=== PATIENT | female | born 1960 | race Caucasian/White ===

== ENCOUNTER 2019-04-05 00:25 | Outpatient (CLI) | payer OTHER, SELFPAY ==
--- NOTE | 2019-04-05 16:13 | DI.MAMMO_ITS ---
SYMPTOM/DIAGNOSIS: SCREENING Z12.39 MAMMOGRAM: 04/05 Mammograms were interpreted according to the usual protocol including computer analysis with CAD system, tomosynthesis and C view imaging. The breasts are of moderate density with fairly symmetrical distribution of fibroglandular tissue. No dominant mass or clumped microcalcification is identified in either breast. The current examination is compared with previous examinations including December 2015 and there has been no gross interval change in appearance in comparison with the previous studies. CONCLUSION: No specific evidence of malignancy at this time. Routine screening examinations are suggested at yearly intervals in this age group according to the ACS/ACR guidelines. Category 1, breast density category B. MQSA ASSESSMENT OF FINDINGS: Negative. Category 1. Patient will receive a letter notifying them of these results. BI-RADS category B. There are scattered areas of fibroglandular density.
== END 2019-04-05 00:45 ==
PROVIDERS: PCP Nurse Practitioner Family; Visit Provider Nurse Practitioner Family
DX: Z12.31 Encounter for screening mammogram for malignant neoplasm of breast (principal)
CPT/HCPCS: 77063; 77067

== ENCOUNTER 2019-07-18 19:52 | Outpatient (REF) | payer OTHER, SELFPAY ==
[2019-07-18 18:56] LABS: HCT 37.6 % (36.0-46.0); HGB 12.4 g/dL (12.0-15.5); Mean Corpuscular Hemoglobin 30.6 pg (27.0-33.0); Mean Corpuscular Volume 92.8 fL (80-95); Mean Platelet Volume 10.6 fL (8.0-11.0); Platelet Count 247 x1000/uL (130-400); RBC 4.05 m/cumm (4.00-5.20); RBC Distribution Width 12.7 % (11.7-14.6); White Blood Cell Count 5.86 k/cumm (4.4-10.8)
[2019-07-18 19:13] LABS: Anion Gap 9.1 mmol/L (3-11); BUN 19 mg/dL (7-18); CO2 28.9 mmol/L (21.0-32.0); Calcium 9.1 mg/dL (8.5-10.1); Chloride 104 mmol/L (98-107); Glucose 88 mg/dL (74-106); Potassium 3.4 mmol/L (3.5-5.1); Sodium 142 mmol/L (136-145); TSH (W/Ref FT4) 1.39 uIU/mL (0.36-3.74)
== END 2019-07-18 20:12 ==
LOC: NCHCN 19:52
PROVIDERS: PCP Nurse Practitioner Family; Visit Provider Nurse Practitioner Family
DX: R53.83 Other fatigue (principal); F41.8 Other specified anxiety disorders; G47.00 Insomnia, unspecified
CPT/HCPCS: 80048; 85027; 84443

== ENCOUNTER 2021-05-21 02:00 | Outpatient (CLI) | payer OTHER, SELFPAY ==
[2021-05-21 10:12] LABS: Source Nasal/Nares
[2021-05-21 13:54] LABS: COVID-19 PCR Negative (Negative)
== END 2021-05-21 02:01 | disposition home or self-care (01) ==
LOC: LBO 02:01
PROVIDERS: PCP Nurse Practitioner Family; Visit Provider Ophthalmology
DX: Z20.822 Contact with and (suspected) exposure to COVID-19 (principal); Z01.818 Encounter for other preprocedural examination
CPT/HCPCS: 87635

== ENCOUNTER 2021-05-23 08:51 | Day surgery (SDC) | payer OTHER, SELFPAY ==
--- NOTE | 2021-05-23 08:58 | W.PM.DSUDISC ---
Discharge Plan Disposition Patient Disposition: HOME Condition: Good Discharge Details Attending Provider: Joel Dave Primary Care Provider: Brie Lentz Home Meds and New Rx's Prescriptions: No Action atorvastatin 20 MG tablet 20 mg PO DAILY RF: 0 verapamil 180 MG capsule,ext rel. pellets 24 hr 180 mg PO HS RF: 0 amitriptyline 100 MG tablet 100 mg PO HS RF: 0 VITAMIN D3 2,000 UNIT tablet 2,000 unit PO HS RF: 0 oxybutynin chloride 5 MG tablet 5 mg PO HS RF: 0 polyethylene glycol 3350 [Miralax] 17 GM powder in packet 17 g PO DAILY Qty: 255 RF: 0 diltiazem HCl 240 MG capsule,extended release 24 hr 240 mg PO HS RF: 0 cyanocobalamin (vitamin B-12) 2,500 MCG tablet 2,500 mcg PO HS RF: 0 prochlorperazine maleate 5 MG tablet 5 mg PO Q8H PRN Qty: 30 RF: 3 Discharge Instructions Stand Alone Forms: Post-op Topical Cataract, Eitan Jacobson (DSU) DS: Diagnosis Discharge Diagnosis (1) Nuclear sclerotic cataract of right eye: Status: Resolved (2) Cortical cataract of right eye: Status: Resolved
--- NOTE | 2021-05-23 08:59 | ROE_ITS ---
Date of service: 05/23/21 Time of Service: 11:38 Operative Note Operative Note DATE OF PROCEDURE: 05/23/21 PRE-OP DIAGNOSIS: Nuclear/cortical cataract, right eye Poor red reflex, right eye secondary to cataract POST-OP DIAGNOSIS: same PROCEDURE: Cataract extraction using phacoemulsification with intraocular lens implantation, right eye, using capsular staining with Vision Blue SURGEON: Joel Dave ANESTHESIA TYPE: Local By Surgeon and MAC Refer to Anesthesia Record PATHOLOGY: none sent COMPLICATIONS: None Patient was transported to: same day Patient's condition: stable Implants: [employer] / [employer] Tecnis [id number] Indications: Progressive visual loss due to cataract, right eye Procedure Description: CATARACT SURGERY OPERATIVE REPORT PREOPERATIVE DIAGNOSIS: 1. Nuclear/cortical cataract, right eye 2. Poor red reflex secondary to #1 POSTOPERATIVE DIAGNOSIS: Same OPERATION: 1. Cataract extraction using phacoemulsification with posterior chamber intraocular lens implant, right eye. 2. Capsular staining with Vision Blue IOL: IOL Edging Supervisor/Model: [employer] Corky / JURGEN Tecnis [id number] IOL Power: + 23.0 diopters IOL Serial Number: [id number] Optic Diameter: 6.0mm Haptic/Overall Diameter: 13.0mm PHACO INFO: Berny [employer]ion Vision System with OZil and Active [employer]uidics Cumulative Dispersed Energy (CDE): 6.53 seconds SURGEON: Joel Dave MD, DONALD ANESTHESIA: Monitored Anesthesia Care (MAC), with local sub-tenon's anesthetic infiltration COMPLICATIONS: None SPECIMENS: None INDICATIONS FOR PROCEDURE: The patient is a 60-year-old lady with history of diminished visual acuity in her right eye secondary to the development of significant nuclear and cortical cataract. The option of cataract surgery was offered to the patient and she felt she was symptomatic enough that she wished to proceed. PROCEDURE: The correct surgical eye was identified and marked as the right eye and the pupil was dilated in the preoperative area using mydriatics and cycloplegics. The dilated pupil size was 6.5 mm. She elected to proceed without oral sedation. The patient was brought to the operating room where cardiopulmonary monitoring was instituted and surgical time-out was performed, confirming the correct operative eye and IOL power. Topical anesthesia was administered and ophthalmic povidone-iodine 5% was instilled into the conjunctival fornices. While taping the head, the patient felt too claustrophobic. The procedure was paused, and an IV was started and Versed 2 mg was given IV. Lidocaine gel was applied to the cornea and the kiersten- ocular area was prepped with Betadine 10% solution and draped in the usual sterile fashion for intraocular surgery, including an aperture drape. A Tegaderm transparent film dressing was cut in half and used to cover the lashes and lid margins. Care was taken to sequester the lashes and lid margins under the Tegaderm dressing. A lid speculum was placed between the lids of the operative eye and the Mark Anthony-Hannah operating microscope was maneuvered into position. Carly scissors were then used to make a conjunctival buttonhole approximately 6mm posterior to the limbus in the inferonasal quadrant. Blunt dissection was carried out to expose bare sclera, and a blunt-tipped sub-tenon?s anesthesia cannula was introduced and passed posteriorly along the globe where non- preserved plain lidocaine was injected into posterior sub-Tenon?s space. A sidep ort knife was used to make a paracentesis port inferotemporally. Intraocular phenylephrine/lidocaine was injected into the anterior chamber. Air was injected into the anterior chamber, followed by Vision Blue, which was painted over the anterior capsule and then irrigated out with BSS. The anterior chamber was filled with viscoelastic. A 2.4mm keratome knife was used to create a half- thickness groove at the limbus and then to construct a three-plane near-clear corneal tunnel extending 2.0mm into clear cornea superiortemporally. A flap was raised on the anterior capsule and capsulorhexis forceps were used to complete a continuous curvilinear capsulorhexis of 5.0 mm. Balanced salt solution was then used to perform cortical cleaving hydrodissection and nuclear hydrodelineation until the lens could be freely rotated within the capsular bag. The lens nucleus was then disassembled and removed within the capsular bag and iris plane using phacoemulsification. Residual cortical material was removed using the I/A handpiece. The posterior capsule was carefully polished to remove as much residual lens epithelial cells as safely possible. The capsular bag was then inflated and the anterior chamber deepened with viscoelastic. The lens implant described above was inserted into the capsular bag using the JURGEN [place] Injector. A Kuglen hook was used to dial the IOL into position. Residual viscoelastic was then removed first from posterior to the IOL, then from the anterior chamber using the I/A handpiece. The lens implant was noted to center nicely within the capsular bag. The incisions were stromally hydrated, and the anterior chamber was reformed using BSS. Then 0.5cc of moxifloxacin 1.0mg/ml were injected into the capsular bag and anterior chamber. The incisions were checked with a Weck spear and found to be secure. Several drops of ophthalmic povidone-iodine 5% were then applied to the eye followed by two drops of Imprimis combination prednisolone/moxifloxacin/nepafenac solution. The drapes were removed and a clear plastic protective eye shield was placed over the eye. The patient was then returned to [facility] Day Surgery in stable condition.
[2021-05-23 09:15] VITALS: BP 147/89; PULSE 74; RESP 16; TEMP 36.4; O2SAT 96
[2021-05-23] MEDS: Tropicam./Phenyleph. (1/2.5%) 5 ML BTL OD ×3 (09:35→09:48)
--- NOTE | 2021-05-23 10:21 | W.ANESPRE ---
General Info Date of Service Date Performed: 05/23/21 Height: 5 ft 7.5 in Weight: 76.3 kg Body Mass Index (BMI): 25.9 Surgical Procedure: Operation Date: 05/23/21 11:40 Proposed Procedures Side Surgeon p Cataract Extraction with IOL Implant Right Joel Dave MD Meds Allergies and Home Medications Allergies Allergy/AdvReac Type Severity Reaction Status Date / Time No Known Allergies Allergy Unverified 05/23/21 09:27 Home Medication Medication Instructions Recorded Vitamin D3 2,000 unit PO HS 01/20/16 amitriptyline 100 mg PO HS tab-cap 01/20/16 atorvastatin 20 mg PO DAILY tab-cap 01/20/16 cyanocobalamin (vitamin B-12) 2,500 mcg PO HS 12/28/17 diltiazem HCl 240 mg PO HS 12/28/17 oxybutynin chloride 5 mg PO HS tab-cap 12/28/17 polyethylene glycol 3350 [Miralax] 17 g PO DAILY #255 gm 12/28/17 magnesium oxide 500 mg PO DAILY 05/23/21 Current Visit Medications: Current Medications Generic Name Dose Route Start Last Admin Trade Name Freq PRN Reason Stop Dose Admin Acetaminophen 1,000 mg 05/23/21 06:00 Acetaminophen 500 Mg Tab PO Q4H PRN PRN Miscellaneous Medication 0 ml 05/23/21 06:00 Prednisolone 1%, Moxifloxacin 0.5%, Nepafenac 0.1% 5ml Btl OD DIRECTED [facility] Miscellaneous Medication 0 ml 05/23/21 06:00 05/23/21 09:48 Tropicam./Phenyleph. (1/2.5%) 5 Ml Btl OD 1 drp DIRECTED DOMINGO Administration Tetracaine HCl 0 ml 05/23/21 06:00 Tetracaine 0.5% 4 Ml Btl OD DIRECTED DOMINGO PFSH Active Problems Active Problems: Problem Status Onset Code Encounter for colorectal cancer screening Z12.11, Z12.12 Nuclear sclerotic cataract of right eye H25.11 Cortical cataract of right eye H26.9 Medical History Medical History Chronic headache HTN (hypertension) OAB (overactive bladder) Surgical History Surgical History back surgery Colonoscopy - MAC (03/13/16) Vaginal hysterectomy Tobacco Smoking/Tobacco Use Status: Former Tobacco Use Alcohol Alcohol Intake: current Alcohol intake frequency: a few times a week Substance Use Substance use: Never Substance use type: does not use Vital Signs and Lab Results Vital Signs Most Recent Vital Signs in EMR: Most Recent Vital Signs Temp Pulse Resp BP Pulse Ox 36.4 C L 74 16 147/89 H 96 05/23/21 09:15 05/23/21 09:15 05/23/21 09:15 05/23/21 09:15 05/23/21 09:15 Lab Results Blood Type / Crossmatch: No Data to Display Complete Blood Count: No Data to Display Complete Metabolic Panel: No Data to Display Liver Function Panel: No Data to Display Coagulation Panel: No Data to Display Cardiac Panel: No Data to Display Arterial Blood Gas: No Data to Display Venous Blood Gas: No Data to Display Pancreas Panel: No Data to Display Thyroid Panel: No Data to Display Infectious Disease: Coronavirus (COVID-19)(PCR) Negative (Negative) 05/21/21 09:35 05/21/21 Coronavirus 2019 Source Nasal/Nares 05/21/21 09:35 05/21/21 Blood Cultures: No Data to Display Toxicology Panel: No Data to Display Anesthesia Assessment and Plan Anesthesia History Personal History: No History of Anesthesia Complications Family History: No Family History of Anesthesia Complications Exercise Tolerance Exercise Tolerance: Metabolic Equivalents>4 Pertinent Negatives Pertinent Negatives: No Symptoms of GERD and No Major Pulmonary Symptoms or Complaints Cardiac & Pulmonary Exam Cardiac Exam: Normal S1/S2 Heart Sounds Pulmonary Exam: Clear Bilateral Breath Sounds Airway Exam Known Difficult Airway: No Mallampati Class: 2 Mouth Opening: Normal (> 3cm) Thyromental Distance: Greater than 3 cm Neck Range of Motion: Full ROM Neck Circumference: Normal Teeth Condition: Normal Dentition ASA Classification ASA Score: ASA 2 Emergency Case?: No NPO Status NPO Status: NPO Clears >2 hours, Solids >8 hours Anesthesia Plan Resuscitation Status: Full Code Anesthesia Technique: MAC Anesthesia Airway Planned: Natural Airway Monitors Used: Standard Monitors
[2021-05-23 10:23] VITALS: BMI 25.9
[2021-05-23] MEDS: Tetracaine 0.5% 4 ML BTL OD (10:59)
[2021-05-23] MEDS: Balanced Salt Soln.-PLUS 500 ML BAG (11:11)
[2021-05-23] MEDS: Duovisc Viscoelastic System EACH 1 EACH (11:14)
[2021-05-23] MEDS: Lidocaine 1% Pres-Free 5 ML VIAL (11:14)
[2021-05-23] MEDS: Lidocaine 2% Jelly 6 ML SYR (11:15)
[2021-05-23] MEDS: Povidone-Iodine Ophth 30 ML BTL (11:18)
[2021-05-23] MEDS: Trypan Blue 0.06% 0.5 ML SYR (11:19)
--- NOTE | 2021-05-23 11:37 | W.PM.DSUDISC ---
Discharge Plan Disposition Patient Disposition: HOME Condition: Good Discharge Details Attending Provider: Joel Dave Primary Care Provider: Brie Lentz Home Meds and New Rx's Prescriptions: No Action atorvastatin 20 MG tablet 20 mg PO DAILY RF: 0 amitriptyline 100 MG tablet 100 mg PO HS RF: 0 VITAMIN D3 2,000 UNIT tablet 2,000 unit PO HS RF: 0 oxybutynin chloride 5 MG tablet 5 mg PO HS RF: 0 polyethylene glycol 3350 [Miralax] 17 GM powder in packet 17 g PO DAILY Qty: 255 RF: 0 diltiazem HCl 240 MG capsule,extended release 24 hr 240 mg PO HS RF: 0 cyanocobalamin (vitamin B-12) 2,500 MCG tablet 2,500 mcg PO HS RF: 0 magnesium oxide 500 mg Tablet 500 mg PO DAILY RF: 0 Discharge Instructions Stand Alone Forms: Post-op Topical Cataract, Eitan Jacobson (DSU) Discharge Orders Discharge Orders: Discharge Order (Routine); Ordered 05/23/21 Ordered By: Joel Dave DS: Diagnosis Discharge Diagnosis (1) Nuclear sclerotic cataract of right eye: Status: Resolved (2) Cortical cataract of right eye: Status: Resolved
[2021-05-23 11:42] VITALS: BP 136/98; PULSE 79; RESP 18; TEMP 36.3; O2SAT 97
[2021-05-23 11:56] VITALS: BP 131/90; PULSE 84; RESP 18; TEMP 36.4; O2SAT 97
--- NOTE | 2021-05-23 12:06 | W.ANESPOSTOP ---
Postoperative Evaluation Date, Time and Location Date Performed: 05/23/21 Time Performed: 11:57 Patient Location: Day Surgery Unit Vital Signs Most Recent Imported Vital Signs: Most Recent Vital Signs Temp Pulse Resp BP Pulse Ox 36.4 C L 84 18 131/90 97 05/23/21 11:56 05/23/21 11:56 05/23/21 11:56 05/23/21 11:56 05/23/21 11:56 Pain Score Most Recent Pain Score: Most Recent Pain Score Pain Level 0 05/23/21 11:56 Assessment Mental Status: Awake (Alert & Oriented to Patient Baseline) Airway and Respiratory Function: Patent airway with normal (patient baseline) respiratory exam Cardiovascular Function: Hemodynamically Stable Hydration Status: Adequately Hydrated Nausea & Vomiting: No Nausea or Vomiting Pain: Pt. Denies Any Pain Peripheral Nerve Block: Patient did not receive a nerve block
== END 2021-05-23 12:04 | disposition home or self-care (01) ==
PROVIDERS: PCP Nurse Practitioner Family; Visit Provider Ophthalmology
PROC: (CPT 66984; principal; 2021-05-23 11:30)
DX: H25.11 Age-related nuclear cataract, right eye (principal); I10 Essential (primary) hypertension
CPT/HCPCS: 66984; V2632; J2250

== ENCOUNTER 2022-09-07 10:15 | Emergency (ER) | payer SELFPAY ==
[2022-09-07] VITALS (8 sets, daily range): BP systolic 143–165; BP diastolic 85–111; PULSE 69–88; RESP 14–24; TEMP 36.6; O2SAT 90–96
--- NOTE | 2022-09-07 10:15 | RT.EKG_ITS ---
APPROVED REPORT Exam: Resting ECG Reason for Exam: dizzy Patient Location: E HR:84 bpm ECG Measurements Heart Rate 84 AXIS OK 149 P 52 QRSd 80 QRS 42 QT 391 T 19 QTc 462 Conclusion Sinus rhythm...normal P axis, V-rate 60- 99 Probable left atrial enlargement...P >50mS, <-0.10mV V1 Low voltage, precordial leads...precordial leads <1.0mV Physician: no stmi, q wave in lead III new compared to 2007
[2022-09-07] MEDS: Normal Saline 1,000 ML 1000 ML IV (11:13)
[2022-09-07 11:21] LABS: Abs Immature Grans 0.01 10^3/uL (0.0-0.06); Absolute Basophil Count 0.03 10^3/uL (0.0-0.2); Absolute Eosinophil Count 0.21 10^3/uL (0.0-0.7); Absolute Lymphocyte Count 2.26 10^3/uL (1.2-3.4); Absolute Monocyte Count 0.49 10^3/uL (0.1-0.8); Absolute Neutrophil Count 3.09 10^3/uL (1.2-6.7); Basophils % 0.5; Eosinophils % 3.4; HCT 40.1 % (36.0-46.0); HGB 13.7 g/dL (11.2-15.7); Immature Grans % 0.2; Lymphocytes % 37.1; MCH 30.2 pg (27.0-33.0); MCHC 34.2 % (32.0-36.0); MCV 88 fL (80-95); Neutrophils % 50.8; Platelet Count 222 10^3/uL (130-400); RBC 4.54 10^6/uL (3.93-5.22); RDW 12.6 % (11.7-14.6); RDW-SD 40.9 fL; WBC 6.09 10^3/uL (4.4-10.8)
[2022-09-07 11:45] LABS: ALT 33 U/L (14-59); AST 33 U/L (15-37); Albumin 4.1 g/dL (3.4-5.0); Alkaline Phosphatase 120 U/L (46-116); Anion Gap 12.4 mmol/L (3-11); BUN 11 mg/dL (7-18); Bilirubin, Total 0.7 mg/dL (0.2-1.0); CO2 24.6 mmol/L (21.0-32.0); Calcium 9.2 mg/dL (8.5-10.1); Chloride 101 mmol/L (98-107); Glucose 104 mg/dL (74-106); Magnesium 1.9 mg/dL (1.8-2.4); Potassium 3.4 mmol/L (3.5-5.1); Sodium 138 mmol/L (136-145); TSH 1.62 uIU/mL (0.36-3.74); Total Protein 7.7 g/dL (6.4-8.2); Troponin I < 50 ng/L (<or=60)
[2022-09-07] MEDS: LORazepam 1 MG TAB PO (12:16)
[2022-09-07] MEDS: Potassium Chloride 10 MEQ TABCR PO (12:16)
[2022-09-07 12:20] LABS: Bilirubin Negative (Negative); Blood Small (Negative); Clarity Clear (Clear); Glucose Negative (Negative); Ketones 15 mg/dL (Negative); Leukocyte Esterase Negative (Negative); Nitrite Negative (Negative); Urobilinogen 0.2 EU/dL (Up TO 0.2)
[2022-09-07 12:34] LABS: Bacteria Negative HPF (Negative); C & S Indicated? No; Casts Negative LPF (Negative); Crystals Negative HPF (Negative); Epithelial Cells Few HPF (Negative); Mucus Negative (Negative); RBC 0-2 HPF (0-2); WBC Negative HPF (0-5)
--- NOTE | 2022-09-07 12:41 | ED.GENADUL_ITS ---
Discharge Plan Disposition Patient Disposition: Home Condition: Improving Discharge Details Clinical Impression: Anxiety, Medication adverse effect Primary Care Provider: Brie Lentz ED Provider: Jace Schwab Home Meds and New Rx's Prescriptions: New hydroxyzine HCl 25 mg tablet 25 mg PO TID PRN (Reason: anxiety) Qty: 10 0RF Continued atorvastatin 20 MG tablet 20 mg PO DAILY VITAMIN D3 2,000 UNIT tablet 2,000 unit PO HS oxybutynin chloride 5 MG tablet 5 mg PO HS polyethylene glycol 3350 [Miralax] 17 GM powder in packet 17 g PO DAILY Qty: 255 cyanocobalamin (vitamin B-12) 2,500 MCG tablet 2,500 mcg PO HS magnesium oxide 500 mg Tablet 500 mg PO DAILY trazodone 50 mg tablet 1 tab PO PRN PRN Label Comments: Take 1 tablet by mouth at bedtime start with 1/2 tab HS X 1 week, then increase to 1 tab if needed No Action amitriptyline 100 MG tablet 100 mg PO HS diltiazem HCl 240 MG capsule,extended release 24 hr 240 mg PO HS Discharge Instructions Instructions: Anxiety (ED) Additional Instructions: Continue to follow the recommended medication changes as your primary care provider instructed. Please keep your follow-up appoint with them for later this week to further discuss adverse effects of medication changes along with any potential additional medications I would like to give you. You may take the antianxiety med as directed but please be aware this may make you feel slightly sedated or tired. Use caution when driving vehicles or operating dangerous or heavy machinery. Referrals: Brie Lentz [Primary Care Provider] - (As previously arranged) Discharge Data Discharge Date/Time-TO BE ENTERED AT DEPARTURE: 09/07/22 13:17 Medical Decision Making Patient presenting to the emergency department for chief complaint of not feeling well. Patient reports couple weeks ago they took her off her amitriptyline and diltiazem. Since then she has not been feeling well, having issues sleeping. She states occasionally feeling dizzy, having weakness, nausea without vomiting, denies fever chills, chest pain shortness of breath. Physical exam shows anxious female with slight noted hypertension on vital sign review otherwise unremarkable exam. We will plan on performing EKG and labs including thyroid. Pending results will give Ativan and normal saline. Highly suspicious for anxiety and panic attack but also considered potential withdrawal type symptoms from recent medication changes. Reviewed labs and CBC is unremarkable, CMP shows potassium slightly decreased at 3.4 which we will replete orally, anion gap of 12.4 and alk phos of 120 otherwise unremarkable. TSH is within normal range, urine shows small amount of ketones and blood but otherwise negative for infection or other findings. Troponin was negative. Please see physician interpretation for full interpretation of EKG but upon my review patient is in normal sinus rhythm and does not have findings to suggest acute STEMI. Reassessed patient and patient states significant improvement of symptoms and feeling a lot better. I do suspect given onset correlating with medication changes that patient is having some adverse effects to medication change that is also exacerbating her anxiety. Patient states she already has follow-up for later this week which I feel is appropriate. We will prescribe patient Atarax to use as needed and did discuss with patient return follow-up precautions. After discussion of diagnosis and plan of care patient has no further needs, questions, or concerns and states clear understanding to return to the emergency department for any worsening symptoms. This documentation was generated using [email or web address] system, please disregard any oddities of phrase or misspellings. Lab Data Lab results reviewed: Yes I reviewed the patient's lab results. HPI General Mode of arrival: ambulatory . Date/Time Provider Initiated Documentation: 09/07/22 10:27 . Limitations to Documentation: no limitations . Information obtained by: patient, family and RN notes reviewed . History of Present Illness 62 year old F presents to the emergency department with the chief complaint of Feeling off, foggy, dizzy weak nauseous, described as moderate, Quality is described as other (Denies focal pain), Patient started experiencing this week(s) (2) and it has been intermittent. No relieving factors improve symptom(s), Medication worsens symptoms . Patient did receive the following treatments prior to arrival, none Related Data Home Medications Medication Instructions Recorded Confirmed Vitamin D3 2,000 unit PO HS 01/20/16 05/23/21 amitriptyline 100 mg tablet 100 mg PO HS 01/20/16 05/23/21 atorvastatin 20 mg tablet 20 mg PO DAILY 01/20/16 09/07/22 cyanocobalamin (vitamin B-12) 2,500 mcg PO HS 12/28/17 09/07/22 2,500 mcg tablet diltiazem HCl 240 mg capsule,24 240 mg PO HS 12/28/17 05/23/21 hr,extended release oxybutynin chloride 5 mg tablet 5 mg PO HS 12/28/17 09/07/22 polyethylene glycol 3350 17 gram 17 g PO DAILY ##255 12/28/17 05/23/21 oral powder packet (Miralax) magnesium oxide 500 mg tablet 500 mg PO DAILY 05/23/21 09/07/22 hydroxyzine HCl 25 mg tablet 25 mg PO TID PRN anxiety #10 tabs 09/07/22 trazodone 50 mg tablet 1 tab PO PRN PRN 09/07/22 09/07/22 Previous Rx's Medication Instructions Recorded hydroxyzine HCl 25 mg tablet 25 mg PO TID PRN anxiety #10 tabs 09/07/22 Allergies Allergy/AdvReac Type Severity Reaction Status Date / Time No Known Allergies Allergy Unverified 09/07/22 10:25 General Stated Complaint: Dizzy/Sync [place]: 3 Review of Systems Constitutional Constitutional: Denies body ache(s), Denies chills, Denies fatigue, Denies fever(s), Denies headache(s), Reports lethargy, Reports malaise and Reports weakness (General nonfocal) Eyes Eyes: Denies change in vision ENT Ears, Nose, Mouth, and Throat: Reports dizziness, Denies headache(s) and Denies sore throat Cardiovascular Cardiovascular: Denies chest pain, Denies syncope and Denies dyspnea Respiratory Respiratory: Denies cough and Denies dyspnea Gastrointestinal Gastrointestinal: Denies abdominal pain, Reports nausea and Denies vomiting Genitourinary Genitourinary: Denies dysuria and Denies urinary urgency Musculoskeletal Musculoskeletal: Denies myalgias Integumentary/Breasts Skin/Breast: Denies rash Neurologic Neurologic: Reports dizziness, Denies syncope, Denies headache(s) and Reports weakness (General nonfocal) Psychiatric Psychiatric: Reports as per HPI, Reports abnormal sleep pattern, Reports anxiety and Reports depression Endocrine Endocrine: Denies fatigue PFSH All Active Problems Anxiety (Chronic) Medication adverse effect (Acute) Encounter for colorectal cancer screening (Acute) Medical History Chronic headache HTN (hypertension) OAB (overactive bladder) Surgical History back surgery Colonoscopy - MAC (03/13/16) Vaginal hysterectomy Social History Smoking/Tobacco Use Status: Former Tobacco Use Quit Date: 08/02/09 Smoking risk assessment performed?: Yes Alcohol Intake: current Alcohol Intake frequency: a few times a week Drug use: Never Substance use type: does not use Do you feel safe at home: Yes Do you feel safe in your relationship?: Yes Exam Const General: cooperative, anxious and not ill appearing Orientation: alert, awake and oriented x3 HENMT Mouth: moist mucous membranes Resp Effort & Inspection: normal respiratory effort, able to speak in complete sentences and no respiratory distress Auscultation: clear to auscultation bilaterally Cardio Rate: regular rate Rhythm: regular rhythm Heart Sounds: S1 normal and S2 normal Skin General skin exam: no rashes or lesions noted Neuro General: patient alert, patient awake, patient oriented x3, gait normal, tone normal, moves all extremities, no focal motor deficits, not confused and not obtunded Sensory Exam: no sensory deficits noted Psych Mental Status: mental status grossly normal Speech and Movement: speech and movement normal Mood: anxious mood Affect: anxious affect Attitude: cooperative Course Vital Signs Vital signs: Vital Signs Temperature 36.6 C 09/07/22 10:18 Pulse 88 09/07/22 10:18 Respiratory Rate 24 09/07/22 10:18 Blood Pressure 165/111 H 09/07/22 10:18 Pulse Oximetry 96 09/07/22 10:18 Temperature 36.6 C 09/07/22 10:18 Temperature Source Tympanic 09/07/22 10:18 Pulse 69 09/07/22 11:39 Pulse 82 09/07/22 12:18 Respiratory Rate 16 09/07/22 12:18 Respiratory Effort 09/07/22 10:40 Respiratory Depth Normal 09/07/22 10:40 Respiratory Pattern Normal 09/07/22 10:40 Blood Pressure 143/85 H 09/07/22 11:39 Blood Pressure Mean 100 09/07/22 11:39 Blood Pressure Position Sitting 09/07/22 10:18 Pulse Oximetry 96 09/07/22 12:18 Oxygen Delivery Method Room Air 09/07/22 10:18 Oxygen Flow Rate 0 09/07/22 10:18 Pain Level 0 09/07/22 10:18 Lab/Test Results Lab/Test Results: Laboratory Tests Range/Units 09/07/22 09/07/22 09/07/22 11:05 11:05 12:14 WBC (4.4-10.8) 10^3/uL 6.09 RBC (3.93-5.22) 10^6/uL 4.54 Hgb (11.2-15.7) g/dL 13.7 Hct (36.0-46.0) % 40.1 MCV (80-95) fL 88 MCH (27.0-33.0) pg 30.2 MCHC (32.0-36.0) % 34.2 RDW (11.7-14.6) % 12.6 Plt Count (130-400) 10^3/uL 222 MPV (8.0-11.0) fL 10.0 Immature Gran % 0.2 Neutrophils % 50.8 Lymphocytes % 37.1 Monocytes % 8.0 Eosinophils % 3.4 Basophils % 0.5 Nucleated RBC % (0.0-0.3) % 0.0 Absolute Neutrophils (1.2-6.7) 10^3/uL 3.09 Absolute Lymphocytes (1.2-3.4) 10^3/uL 2.26 Absolute Monocytes (0.1-0.8) 10^3/uL 0.49 Absolute Eosinophils (0.0-0.7) 10^3/uL 0.21 Absolute Basophils (0.0-0.2) 10^3/uL 0.03 Sodium (136-145) mmol/L 138 Potassium (3.5-5.1) mmol/L 3.4 L Chloride (98-107) mmol/L 101 Carbon Dioxide (21.0-32.0) mmol/L 24.6 Anion Gap (3-11) mmol/L 12.4 H BUN (7-18) mg/dL 11 Creatinine (0.55-1.02) mg/dL 1.0 Est GFR (CKD-EPI 2020) (mL/min/1.73m2) 63.30 Glucose (74-106) mg/dL 104 Calcium (8.5-10.1) mg/dL 9.2 Magnesium (1.8-2.4) mg/dL 1.9 Total Bilirubin (0.2-1.0) mg/dL 0.7 AST (15-37) U/L 33 ALT (14-59) U/L 33 Alkaline Phosphatase (46-116) U/L 120 H Troponin I (<or=60) ng/L < 50 Total Protein (6.4-8.2) g/dL 7.7 Albumin (3.4-5.0) g/dL 4.1 TSH (0.36-3.74) uIU/mL 1.62 Urine Color (Yellow) Yellow Urine Clarity (Clear) Clear Urine pH (5-8) 7.0 Ur Specific [place] (1.005-1.025) 1.020 Urine Protein (Negative) mg/dL Negative Urine Ketones (Negative) mg/dL 15 H Urine Blood (Negative) Small H Urine Nitrite (Negative) Negative Urine Bilirubin (Negative) Negative Urine Urobilinogen (Up TO 0.2) EU/dL 0.2 Ur Leukocyte Esterase (Negative) Negative Urine RBC (0-2) HPF 0-2 Urine WBC (0-5) HPF Negative Ur Epithelial Cells (Negative) HPF Few Urine Crystals (Negative) HPF Negative Urine Bacteria (Negative) HPF Negative Urine Casts (Negative) LPF Negative Urine Mucus (Negative) Negative Ur Culture Indicated? No Urine Glucose (Negative) mg/dL Negative
== END 2022-09-07 13:17 | disposition home or self-care (01) ==
PROVIDERS: Emergency Provider Nurse Practitioner Family; PCP Nurse Practitioner Family
DX: F41.9 Anxiety disorder, unspecified (principal); I10 Essential (primary) hypertension; E87.6 Hypokalemia; T50.905A Adverse effect of unspecified drugs, medicaments and biological substances, initial encounter
CPT/HCPCS: 36415; 80053; 93005; 96361; 96374; 99284; 81003; 81015; 83735; 84443; 84484; 85025; 93010

== ENCOUNTER → 2023-05-17 03:57 | Outpatient (CLI) | payer MEDICAID, SELFPAY ==
--- NOTE | 2023-05-17 08:00 | DI.MAMMO_ITS ---
Exam(s) MAMMO SCREENING EXAM: MAMMO SCREENING CLINICAL HISTORY: SCREENING, Z12.39 TECHNIQUE: Bilateral full field digital CC and MLO mammographic images were obtained with 3D tomosyn thesis and utilizing computer aided detection (CAD). COMPARISON: Available for comparison. FINDINGS: Masses/Architectural Distortion: None seen. Microcalcifications: No suspicious pleomorphic-type are seen. Skin Thickening/Nipple Retraction: None. IMPRESSION: 1. No significant interval change with no specific features of malignancy noted. 2. Unless there is more urgent need, screening mammography is recommended, as per [place] guidelines. BI-RADS Category 1 - Negative Breast Density - Category B - Scattered areas of fibroglandular density Breast density category C or D implies that the patient has dense breast tissue. Dense breast tissue is very common and is not abnormal but dense breast tissue can make it harder to find cancer on a ma mmogram. Also, dense breast tissue may increase their breast cancer risk. This information about the result of the mammogram report was provided to the patient to raise their awareness. Use this report when you speak with the patient about their risks for breast cancer, which includes their family hist ory. At that time, you may recommend for more screening tests (Ultrasound or MRI) as they might be us eful based on their risk. A negative radiographic report should not delay biopsy if a dominant or clinically suspicious mass is present. Up to ten percent of cancers are not identified on mammography. A negative report may reinforce clinical impression. Adenosis and dense breasts may obscure an underlying neoplasm. False positive reports average 6 to 10%. Patient will receive a letter notifying them of these results.
== END ==
PROVIDERS: PCP Nurse Practitioner Family; Visit Provider Nurse Practitioner Family
DX: Z12.31 Encounter for screening mammogram for malignant neoplasm of breast (principal)
CPT/HCPCS: 77063; 77067

== ENCOUNTER 2024-05-15 21:17 | Outpatient (REF) | payer MEDICARE, MEDICAID, SELFPAY ==
[2024-05-15 17:01] LABS: HCT 44.8 % (36.0-46.0); HGB 14.9 g/dL (11.2-15.7); MCH 30.5 pg (27.0-33.0); MCHC 33.3 % (32.0-36.0); MCV 92 fL (80-95); MPV 10.6 fL (8.0-11.0); Platelet Count 248 10^3/uL (130-400); RBC 4.88 10^6/uL (3.93-5.22); RDW 12.3 % (11.7-14.6); WBC 6.19 10^3/uL (4.4-10.8)
[2024-05-15 17:13] LABS: ALT 24 U/L (14-59); AST 25 U/L (15-37); Albumin 4.2 g/dL (3.4-5.0); Alkaline Phosphatase 142 U/L (46-116); BUN 9 mg/dL (7-18); Bilirubin, Total 0.64 mg/dL (0.2-1.0); CREATININE 1.1 mg/dL (0.55-1.02); Calcium 9.5 mg/dL (8.5-10.1); Calculated LDL 127 mg/dL (<100); Chloride 103 mmol/L (98-107); Cholesterol 243 mg/dL (<200); Estimated GFR 55.76 (mL/min/1.73m2); Glucose 95 mg/dL (74-106); HDL Cholesterol 76 mg/dL (40-60); Potassium 3.7 mmol/L (3.5-5.1); Sodium 143 mmol/L (136-145); Total Protein 8.5 g/dL (6.4-8.2); Triglyceride 201 mg/dL (<150)
[2024-05-16 19:05] LABS: HIV-1/2 Ag & Ab Screen Negative (Negative)
[2024-05-16 19:43] LABS: Hepatitis C Ab w Rflx HCV PCR Negative (Negative)
== END 2024-05-15 21:18 | disposition home or self-care (01) ==
LOC: NCHCN 21:17
PROVIDERS: PCP Nurse Practitioner Family; Visit Provider Nurse Practitioner Family
DX: Z00.00 Encounter for general adult medical examination without abnormal findings (principal)
CPT/HCPCS: 80053; 80061; 85027; 86803; 87389

== ENCOUNTER 2024-05-26 00:16 | Outpatient (CLI) | payer MEDICARE, MEDICAID, SELFPAY ==
--- OUTSIDE RECORDS SUMMARY | 2024-05-26 00:18 | XMS_ITS | Referral Summary ---
Author Organization [facility] Address [address] [place] [address] Care Team Providers Care Autocad Draftsman Name Role Phone Unknown, Provider Primary Care Provider Encounters Date Type Department Care Team Description 05/16/2024 Lab Requisition [facility] Pathology & Laboratory Medicine [address] [address] Outr Resulting Lab, Provider 05/16/2024 Lab Requisition [facility] Pathology & Laboratory [address] [address] Outr Resulting Lab, Provider from Last 3 Months Social History Tobacco Use Types Packs/Day Years Used Date Smoking Tobacco: Never Assessed Sex and Gender Information Value Date Recorded Sex Assigned at Not on file Gender Identity Not on file Sexual Orientation Not on file Plan of Treatment Not on file Procedures Procedure Name Priority Date/Time Associated Diagnosis Comments HIV 1/2 ANTIGEN AND ANTIBODY, 4TH GENERATION Routine 05/15/2024 10:10 EDT HEPATITIS C AB W REFLEX TO HCV RNA BY PCR Routine 05/15/2024 10:10 EDT from Last 3 Months Results * HEPATITIS C AB W REFLEX TO HCV RNA BY PCR (05/15/2024 10:10 EDT) Hep C Antibody Negative Negative 05/16/2024 19:37 EDT [facility] Blood VENOUS BLOOD / Unknown 05/15/2024 10:10 EDT 05/16/2024 17:14 EDT Provider Outr Resulting Lab CHEMISTRY & BLOOD GAS ORDERABLES Performing Organization Address [facility]/ZIP Co de Phone Number [facility] [address] [place], [place] [id number] * HIV 1/2 ANTIGEN AND ANTIBODY, 4TH GENERATION (05/15/2024 10:10 EDT) HIV 1 and 2 Antibody/p24 Antigen, 4th Generation Negative Negative 05/16/2024 19:00 EDT [facility] Comment:If acute HIV-1 infec tion is suspected in a high risk patient, submit plasma specimen for HIV-1 RNA quantitation test. Blood VENOUS BLOOD / Unknown 05/15/2024 10:10 EDT 05/16/2024 17:14 EDT Narrative [facility] - 05/16/2024 19:00 EDT Fourth Generation assay performed on the Siemens Centaur XPT. Provider Outr Resulting Lab IMMUNOLOGY A ND SEROLOGY ORDERABLES Performing Organization Address City/[facility]/ZIP Co de Phone Number [facility] [address] [place] [address] from Last 3 Months Care Teams Autocad Draftsman Relationship Specialty Start Date End Date Unknown, Provider, PCP - General 05/23/24
--- OUTSIDE RECORDS SUMMARY | 2024-05-26 00:18 | XMS_ITS | Encounter Summary ---
Author Organization [facility] Address [address] [place] [address] Care Team Providers Care Cooler Tender Name Role Phone Ashley Mazariegos MD Primary Care Provider Unavailabl e Unknown, Provider Primary Care Provider Encounter Details Date Type Department Care Team (Late st Contact Info) Description 05/16/2024 Lab Requisition [facility] Pathology & Laboratory Medicine - [address] [address] Outr Resulting Lab, Provider Social History Tobacco Use Types Packs/Day Years Used Date Smoking Tobacco: Never Assessed Sex and Gender Information Value Date Recorded Sex Assigned at Not on file Gender Identity Not on file Sexual Orientation Not on file documented as of this encounter Plan of Treatment Not on file documented as of this encounter Procedures Procedure Name Priority Date/Time Associated Diagnosis Comments HIV 1/2 ANTIGEN AND ANTIBODY, 4TH GENERATION Routine 05/15/2024 10:10 EDT documented in this encounter Results * HIV 1/2 ANTIGEN AND ANTIBODY, 4TH GENERATION (05/15/2024 10:10 EDT) HIV 1 and 2 Antibody/p24 Antigen, 4th Generation Negative Negative 05/16/2024 19:00 EDT [facility] Comment:If acute HIV-1 infec tion is suspected in a high risk patient, submit plasma specimen for HIV-1 RNA quantitation test. Blood VENOUS BLOOD / Unknown 05/15/2024 10:10 EDT 05/16/2024 17:14 EDT Narrative [facility] - 05/16/2024 19:00 EDT Fourth Generation assay performed on the Siemens Centaur XPT. Provider Outr Resulting Lab IMMUNOLOGY A ND SEROLOGY ORDERABLES [facility] [address] [place] [address] documented in this encounter Visit Diagnoses Not on filedocumented in this encounter Care Teams Cooler Tender Relationship Specialty Start Date End Date Ashley Mazariegos MD PCP - General 06/11/15 05/22/24 Unknown, ProviderMD PCP - General 05/23/24 documented as of this encounter
--- OUTSIDE RECORDS SUMMARY | 2024-05-26 00:18 | XMS_ITS | Encounter Summary ---
Author Organization [facility] Address [address] [place] [address] Care Team Providers Care Veterinary Poultry Inspector Name Role Phone Unavailable Primary Care Provider Unavailabl e Encounter Details Date Type Department Care Team (Late st Contact Info) Description 05/21/2006 Results Only [facility] [address] [place] [address] Nelly Pruett MD [facility] [place] [address] Social History Tobacco Use Types Packs/Day Years Used Date Smoking Tobacco: Never Assessed Sex and Gender Information Value Date Recorded Sex Assigned at Not on file Gender Identity Not on file Sexual Orientation Not on file documented as of this encounter Plan of Treatment Not on file documented as of this encounter Procedures Procedure Name Priority Date/Time Associated Diagnosis Comments SURGICAL PATHOLOGY Routine 05/21/2006 0:00 EDT documented in this encounter Results * SURGICAL PATHOLOGY (05/21/2006 0:00 EDT) Pathology Report: SURGICAL PATHOLOGY REPORT Reports generated via electronic interface contain original data; however they are lacking the format of the original report. Caution should be taken when reading/interpreti ng unformatted reports. Name: ? DAVID NOLBERTO ? Accession #: ? [id number] ? : ? 1960 (Age: 46) ??F ? Collect Date: ? 05/21/2006 ? Location: ? [facility] ? Receive Date: ? 05/24/2006 ? Provider: NELLY PRUETT MD Copy to: ? Final Pathologic Diagnosis: ? Soft tissue, thumb, right, excision: - Tendinous tissue with mild chronic inflammation. Document reviewed and electronically signed by: Leonora Benoit MD Report ??Date: 05/26/2006 17:00 By the signature above, the attending physician certifies that he/she has personally conducted a gross and/or microscopic examination of the described specimens and rendered or confirmed the above diagnosis. Specimen(s) Received: ? A1 fady R thumb Clinical History: ? R trigger thumb Gross Description: ? Received in formalin labelled David and fady R thumb is a guzman-white, firm, fibrous, 0.5 x 0.3 x 0.3 cm, soft tissue fragment. ??The specimen is entirely submitted in one cassette. ??(Radha Cage/haley End of Report KWADWO JIMENEZ 05/21/2006 05/24/2006 8:4 1 EDT Nelly Pruett MD PATHOLOGY ORDERABLES Performing Organization Address City/State/[facility] Co de Phone Number KWADWO JIMENEZ [address] [place] [address] documented in this encounter Visit Diagnoses Not on filedocumented in this encounter
--- OUTSIDE RECORDS SUMMARY | 2024-05-26 00:18 | XMS_ITS | Clinical Summary ---
Author Organization [facility] Address [address] [place] [address] Care Team Providers Care Community Relations Coordinator Name Role Phone Unknown, Provider Primary Care Provider Encounters Date Type Department Care Team Description 05/16/2024 Lab Requisition [facility] Pathology & Laboratory [address] [address] Outr Resulting Lab, Provider 05/16/2024 Lab Requisition [facility] Pathology & Laboratory [address] [address] Outr Resulting Lab, Provider from Last 3 Months Social History Tobacco Use Types Packs/Day Years Used Date Smoking Tobacco: Never Assessed Sex and Gender Information Value Date Recorded Sex Assigned at Not on file Gender Identity Not on file Sexual Orientation Not on file Plan of Treatment Health Maintenance Due Date Last Done Comments RSV Immunization ( o r 60+ Years) (1 - 1-dose 60+ series) 2019 COVID-19 Vaccine () 04/02/2024 Fall Risk Screening 2024 Hepatitis C Screen Completed 05/15/2024 Procedures Procedure Name Priority Date/Time Associated Diagnosis Comments HIV 1/2 ANTIGEN AND ANTIBODY, 4TH GENERATION Routine 05/15/2024 10:10 EDT HEPATITIS C AB W REFLEX TO HCV RNA BY PCR Routine 05/15/2024 10:10 EDT from Last 3 Months Results * HEPATITIS C AB W REFLEX TO HCV RNA BY PCR (05/15/2024 10:10 EDT) Hep C Antibody Negative Negative 05/16/2024 19:37 EDT [facility] Blood VENOUS BLOOD / Unknown 05/15/2024 10:10 EDT 05/16/2024 17:14 EDT Provider Outr Resulting Lab CHEMISTRY & BLOOD GAS ORDERABLES Performing Organization Address [facility]/ZIP Co de Phone Number [facility] [address] [place] [address] * HIV 1/2 ANTIGEN AND ANTIBODY, 4TH GENERATION (05/15/2024 10:10 EDT) Pathologist [facility] [place] HIV 1 and 2 Antibody/p24 Antigen, 4th Generation Negative Negative 05/16/2024 19:00 EDT [facility] Comment:If acute HIV-1 infec tion is suspected in a high risk patient, submit plasma specimen for HIV-1 RNA quantitation test. Blood VENOUS BLOOD / Unknown 05/15/2024 10:10 EDT 05/16/2024 17:14 EDT Narrative [facility] - 05/16/2024 19:00 EDT Fourth Generation assay performed on the Siemens Centaur XPT. Provider Outr Resulting Lab IMMUNOLOGY A ND SEROLOGY ORDERABLES Performing Organization Address City/[facility]/ZIP Co de Phone Number [facility] [address] [place] [address] from Last 3 Months Care Teams Community Relations Coordinator Relationship Specialty Start Date End Date Unknown, Provider, PCP - General 05/23/24
--- OUTSIDE RECORDS SUMMARY | 2024-05-26 00:18 | XMS_ITS | Encounter Summary ---
Author Organization [facility] Address [address] [place] [address] Care Team Providers Care Peoplesoft Name Role Phone Unavailable Primary Care Provider Unavailabl e Encounter Details Date Type Department Care Team (Late st Contact Info) Description 05/26/2002 Results Only [facility] [address] [place] [address] Laura Ramos MD [address] [place] [address] Social History Tobacco Use Types Packs/Day Years Used Date Smoking Tobacco: Never Assessed Sex and Gender Information Value Date Recorded Sex Assigned at Not on file Gender Identity Not on file Sexual Orientation Not on file documented as of this encounter Plan of Treatment Not on file documented as of this encounter Procedures Procedure Name Priority Date/Time Associated Diagnosis Comments SURGICAL PATHOLOGY Routine 05/26/2002 0:00 EDT documented in this encounter Results * SURGICAL PATHOLOGY (05/26/2002 0:00 EDT) Pathology Report: SURGICAL PATHOLOGY REPORT Reports generated via electronic interface contain original data; however they are lacking the format of the original report. Caution should be taken when reading/interpreti ng unformatted reports. Name: ? DAVIDNOLBERTO ? Accession #: ? [id number] ? : ? 1960 (Age: 42) ??F ? Collect Date: ? 05/26/2002 ? Location: ? [facility] ? Receive Date: ? 05/30/2002 ? Provider: LAURA RAMOS MD Copy to: KARON WHITAKER MD ? Final Pathologic Diagnosis: ? Ovary, right, oophorectomy: 1. ?Benign simple cyst (2.3 cm). 2. ?Corpus luteum cyst (1.4 cm). Document reviewed and electronically signed by: AARON SHAY MD Report ??Date: 06/02/2002 09:56 By the signature above, the attending physician certifies that he/she has personally conducted a gross and/or microscopic examination of the described specimens and rendered or confirmed the above diagnosis. Specimen(s) Received: ? Rt ovary Clinical History: ? Episodic pelvic pain Gross Description: ? Received in formalin labeled David and right ovary is a guzman-white diffusely cystic previously incised ovary which weighs 5.26 grams and measures 3.5 x 2.5 x 0.7 cm. ??Upon sectioning, the cut surfaces have a guzman-white smooth walled 2.3 cm in greatest dimension cyst, which exudes a clear fluid. ??No excrescences are grossly identified. ??No fallopian tube is grossly identified. There is a minimal amount of surrounding unremarkable ovarian parenchyma. ??The specimen is serially sectioned and approximately 75% of the specimen is submitted as (A1) through (A4). ??(Radha Jarrett)/esteban End of Report KWADWO JIMENEZ 05/26/2002 05/30/2002 11: 01 EST Laura Ramos MD PATHOLOGY ORDERABLES KWADWO JIMENEZ [address] [place] [address] documented in this encounter Visit Diagnoses Not on filedocumented in this encounter
--- OUTSIDE RECORDS SUMMARY | 2024-05-26 00:18 | XMS_ITS | Encounter Summary ---
Author Organization [facility] Address [address] [place] [address] Care Team Providers Care Benefits Specialist Name Role Phone Ashley Mazariegos MD Primary Care Provider Unavailabl e Unknown, Provider Primary Care Provider Encounter Details Date Type Department Care Team (Late st Contact Info) Description 05/16/2024 Lab Requisition [facility] Pathology & Laboratory Medicine - [address] [id number] Outr Resulting Lab, Provider Social History Tobacco [...] Procedure Name Priority Date/Time Associated Diagnosis Comments HEPATITIS C AB W REFLEX TO HCV RNA BY PCR Routine 05/15/2024 10:10 EDT documented in this encounter Results * HEPATITIS C AB W REFLEX TO HCV RNA BY PCR (05/15/2024 10:10 EDT) Hep C Antibody Negative Negative 05/16/2024 19:37 EDT [facility] Blood VENOUS BLOOD / Unknown 05/15/2024 10:10 EDT 05/16/2024 17:14 EDT Provider Outr Resulting Lab CHEMISTRY & BLOOD GAS ORDERABLES [facility] [address], [place] [id number] documented in this encounter Visit Diagnoses Not on filedocumented in this encounter Care Teams Benefits Specialist Relationship Specialty Start Date End Date Ashley Mazariegos MD PCP - General 06/11/15 05/22/24 Unknown, Provider, PCP - General 05/23/24 documented as of this encounter
--- NOTE | 2024-05-26 08:30 | DI.MAMMO_ITS ---
Exam(s) MAMMO SCREENING EXAM: MAMMO SCREENING CLINICAL HISTORY: SCREENING, Z12.31. TECHNIQUE: Bilateral full field digital CC and MLO mammographic images were obtained with 3D tomosyn thesis and utilizing computer aided detection (CAD). COMPARISON: Prior mammograms were reviewed. FINDINGS: No new significant findings in the right breast In the left breast on the MLO 3D view there is an asymmetric nodular density measuring 5 x 4 mm locat ed 6 cm in from the nipple on the MLO view. Spot compression and ultrasound recommended. There are no malignant-appearing microcalcification groups in this region or elsewhere in either [address]. There is no significant architectural distortion nor skin thickening-retraction. IMPRESSION: 1. No radiographic evidence of malignancy in the right breast. 2. Asymmetric density possible nodule in the left breast as described above. Spot compression MLO v iew and breast ultrasound recommended BI-RADS Category 0 - Incomplete: Need additional imaging evaluation Breast Density - Category B - Scattered areas of fibroglandular density Breast density Category C or D implies that the patient has dense breast tissue. Dense breast tissue can make it harder to find cancer on a mammogram. Dense breast tissue is also associated with an incr eased risk of breast cancer. This information about the result of the mammogram report was provided to the patient to raise their awareness. Use this report when you speak with the patient about their risks for breast cancer, which includes their family history. At that time, you may recommend additional screening tests (Ultrasoun d or MRI) as these tests may add significant information. A negative radiographic report should not delay biopsy if a dominant or clinically suspicious mass is present. Up to ten percent of cancers are not identified on mammography. A negative report may reinforce clinical impression. Adenosis and dense breasts may obscure an underlying neoplasm. False positive reports average 6 to 10%. Patient will receive a letter notifying them of these results.
--- NOTE | 2024-05-26 08:35 | DI.CTLCSR_ITS ---
Exam(s) CT CHEST LUNG CANCER SCREEN EXAM: CT CHEST LUNG CANCER SCREEN CLINICAL HISTORY: EX SMOKER, Z87.891, SCREENING FOR LUNG CANCER TECHNIQUE: Imaging Protocol: Axial computed tomography images with coronal and sagittal reformatted images were created and reviewed. Computer aided detection (CAD) was utilized. COMPARISON: There are no priors for comparison. FINDINGS: Tracheobronchial tree: Patent where visualized. No bronchiectasis. Pulmonary parenchyma: No consolidation or dominant measurable mass. Mild centrilobular emphysematous changes are present. There is mild peripheral atelectasis or scarring in the right posterior lung ad jacent to the major fissure. Lung Nodules: None. Mediastinum and Sandra: No dominant adenopathy or fluid collection. The esophagus is unremarkable.There is a small hiatal hernia. Thyroid gland: Unremarkable. Lymph nodes: Unremarkable. Pleura: No effusion or pneumothorax. Heart: The heart is not dilated. No coronary artery calcifications are seen. No pericardial effusion . Aorta: Thoracic aorta non-dilated.Atherosclerotic calcification is present. Upper abdomen: Unremarkable. Soft Tissues: Unremarkable. Bones: Within normal limits. There is a bone island in the facet of L4. IMPRESSION: No suspicious pulmonary nodules. Lung RADS Cat 1 - Negative: No nodules and definitely benign nodules Lung-RADS 1.0 CATEGORIES: Category 0 - Prior chest CT exam(s) being located for comparison. Category 1 - Annual screening in 12 months. No nodules or definitely benign nodules. Category 2 - Annual screening in 12 months. Benign appearance. Nodules with low likelihood of becomin g active cancer. Category 3 - 6-month follow-up. Probably benign. Short-term follow-up suggested. Nodules with low lik elihood of becoming active cancer. Category 4A - 3-month follow-up and CT/PET if >8 mm in size. Suspicious finding. Findings which requi re additional testing. Category 4B - Findings which require additional testing and tissue sampling. Suspicious finding. Category 4X - Category 3 or 4 nodules with additional features or imaging findings that increases the suspicion of malignancy. Modifier S- Potentially clinically significant finding. (Non lung cancer) RADIATION DOSE DELIVERED: 27.74mGy.cm Total DLP 27.74mGy.cmTotal DLP DATA REPOSITORY: All CT scans at this facility are submitted to the National Radiology Data Registry (NRDR) Dose Index Registry (DIR) with the [employer] (ACR). RADIATION OPTIMIZATION: All CT scans at this facility use at least one of these dose optimization te chniques: automated exposure control; mA and/or kV adjustment per patient size (includes targeted exa ms where dose is matched to clinical indication); or iterative reconstruction.
== END 2024-05-26 00:36 ==
PROVIDERS: PCP Nurse Practitioner Family; Visit Provider Nurse Practitioner Family
DX: Z87.891 Personal history of nicotine dependence (principal); Z12.2 Encounter for screening for malignant neoplasm of respiratory organs; Z12.31 Encounter for screening mammogram for malignant neoplasm of breast
CPT/HCPCS: 71271; 77063; 77067

== ENCOUNTER 2024-06-01 02:21 | Outpatient (CLI) | payer MEDICARE, MEDICAID, SELFPAY ==
--- NOTE | 2024-06-01 | DI.US_ITS ---
Exam(s) MG MAMMO SCREEN CALL BACK UNI US BREAST LT LIMITED EXAM: MG MAMMO SCREEN CALL BACK UNI CLINICAL HISTORY: F/U MAMMO, LT ASYMMETRIC DENSITY,? NODULE. TECHNIQUE: Mediolateral oblique spot compression digital Mammography view of the leftbreast with To mosynthesis and left breast ultrasound. COMPARISON: MG Screening Bilat Mammo from 12/18/2015 MG MG mammo screening from 04/05/2019 MG MG MAMMO SCREENING from 05/26/2024 US US BREAST LT LIMITED from 06/01/2024 FINDINGS: Mammography/Tomosynthesis: Masses: Persistent circumscribed 5 millimeter nodule in the central breast tissue slightly medial the nipple. Architectural Distortion: None seen. Microcalcifictions: No suspicious pleomorphic-type are seen. Skin Thickening/Nipple Retraction: None. Left breast US: Echotexture: Normal appearance of the glandular tissue. Shadowing: No suspicious foci. Cyst: 5 x 4 x 3 millimeter cyst 10 o'clock position 3 cm from the nipple. Solid lesions: None seen. Ductal dilation: None. IMPRESSION: 1. No evidence of malignancy is noted. 2. Unless there is more urgent need, follow-up screening mammography is recommended, as per [employer] guidelines. 3. The findings were discussed with the patient on the date of the examination. BI-RADS Category 2 - Benign Findings Breast Density - Category B - Scattered areas of fibroglandular density A negative radiographic report should not delay biopsy if a dominant or clinically suspicious mass is present. Up to ten percent of cancers are not identified on mammography. A negative report may reinforce clinical impression. Adenosis and dense breasts may obscure an underlying neoplasm. False positive reports average 6 to 10%. Patient will receive a letter notifying them of these results.
== END 2024-06-01 02:41 ==
LOC: DI 02:21
PROVIDERS: PCP Nurse Practitioner Family; Visit Provider Nurse Practitioner Family
DX: R92.8 Other abnormal and inconclusive findings on diagnostic imaging of breast (principal); Z12.31 Encounter for screening mammogram for malignant neoplasm of breast
CPT/HCPCS: 76642; 77063; 77067

== ENCOUNTER 2024-10-16 02:03 | Outpatient (CLI) | payer MEDICARE, SELFPAY ==
[2024-10-16 13:05] LABS: Kit/Specimen SENT
== END 2024-10-16 02:04 | disposition home or self-care (01) ==
PROVIDERS: PCP Nurse Practitioner Family; Visit Provider Nurse Practitioner Adult Health
DX: Z84.81 Family history of carrier of genetic disease (principal); Z80.3 Family history of malignant neoplasm of breast
CPT/HCPCS: 36415

== ENCOUNTER 2024-11-24 06:27 | Day surgery (SDC) | payer MEDICARE, SELFPAY ==
[2024-11-24] MEDS: Tropicam./Phenyleph. (1/2.5%) 5 ML BTL ×3 (07:12→07:24)
[2024-11-24 07:19] VITALS: BP 148/92; PULSE 89; RESP 16; TEMP 36.3; O2SAT 94
[2024-11-24] MEDS: Normal Saline Flush 10 ML SYR IVP (07:39)
--- NOTE | 2024-11-24 07:52 | W.ANESPRE ---
General Info Date of Service Date Performed: 11/24/24 Height: 5 ft 8 in Weight: 79.7 kg Body Mass Index (BMI): 26.6 Surgical Procedure: Operation Date: 11/24/24 08:40 Proposed Procedure Side Surgeon p Cataract Extraction with IOL Implant Left Joel Dave MD Meds Allergies and Home Medications Allergies Allergy/AdvReac Type Severity Reaction Status Date / Time No Known Allergies Allergy Verified 11/24/24 07:18 Home Medication ?Medication ?Instructions ?Recorded Vitamin D3 2,000 unit PO HS 01/20/16 amitriptyline 100 mg tablet 100 mg PO HS 01/20/16 atorvastatin 20 mg tablet 20 mg PO DAILY 01/20/16 cyanocobalamin (vitamin B-12) 2,500 mcg PO HS 12/28/17 2,500 mcg tablet diltiazem HCl 240 mg capsule,24 240 mg PO QAM 12/28/17 hr,extended release polyethylene glycol 3350 17 gram 17 g PO DAILY ##255 12/28/17 oral powder packet (Miralax) magnesium oxide 500 mg PO DAILY 05/23/21 hydroxyzine HCl 25 mg tablet 25 mg PO TID PRN anxiety #10 tabs 09/07/22 Current Visit Medications: Current Medications Generic Name Dose Route Start Last Admin Trade Name Freq PRN Reason Stop Dose Admin Ringer's Solution 1,000 mls @ 30 mls/hr 11/24/24 06:15 IV 12/24/24 06:14 INFUSION DOMINGO IV Miscellaneous Supplies 1 each 11/24/24 06:15 11/24/24 07:40 Iv Access IV 12/24/24 06:14 1 each DIRECTED DOMINGO Administration Miscellaneous Medication 5 ml 11/24/24 07:00 Tropicam./Phenyleph. (1/2.5%) 5 Ml Btl OP 12/24/24 06:59 DIRECTED DOMINGO Miscellaneous Medication 5.6 ml 11/24/24 07:00 Prednisolone 1%, Moxifloxacin 0.5%, Bromfenac 0.09% 5.6ml Btl OP 12/24/24 06:59 DIRECTED DOMINGO Sodium Chloride 0 ml 11/24/24 06:13 Normal Saline Flush 10 Ml Syr IVP 12/24/24 06:12 PRN PRN Sodium Chloride 0 ml 11/24/24 08:30 11/24/24 07:39 Normal Saline Flush 10 Ml Syr IVP 12/24/24 08:29 10 ml BID DOMINGO Administration Sodium Chloride 0 ml 11/24/24 06:13 Normal Saline 10 Ml Vial IJ 12/24/24 06:12 DIRECTED PRN Tetracaine HCl 4 ml 11/24/24 07:00 Tetracaine 0.5% 4 Ml Btl OP 12/24/24 06:59 DIRECTED DOMINGO PFSH Active Problems Active Problems: Problem Status Onset Code Posterior subcapsular age-related cataract of left eye Acute H25.042 Nuclear age-related cataract, left eye Acute H25.12 Encounter for colorectal cancer screening Acute Z12.11, Z12.12 Nuclear sclerotic cataract of right eye Resolved H25.11 Cortical cataract of right eye Resolved H26.9 Medical History Medical History History of claustrophobia OAB (overactive bladder) Chronic headache HTN (hypertension) Surgical History Surgical History History of cataract surgery right back surgery Vaginal hysterectomy Colonoscopy - MAC (03/13/16) Tobacco Smoking/Tobacco Use Status: Former Tobacco Use Passive smoking exposure: No Alcohol Alcohol Intake: current Alcohol intake frequency: a few times a week Alcohol type: hard liquor Substance Use Substance use: Never Substance use type: does not use Vital Signs and Lab Results Vital Signs Most Recent Vital Signs in EMR: Most Recent Vital Signs Temp Pulse Resp BP Pulse Ox 36.3 C L 89 16 148/92 H 94 11/24/24 07:19 11/24/24 07:19 11/24/24 07:19 11/24/24 07:19 11/24/24 07:19 Lab Results Blood Type / Crossmatch: No Data to Display Complete Blood Count: No Data to Display Complete Metabolic Panel: No Data to Display Liver Function Panel: No Data to Display Coagulation Panel: No Data to Display Cardiac Panel: No Data to Display Arterial Blood Gas: No Data to Display Venous Blood Gas: No Data to Display Pancreas Panel: No Data to Display Thyroid Panel: No Data to Display Infectious Disease: No Data to Display Blood Cultures: No Data to Display Toxicology Panel: No Data to Display Imaging and Studies Imaging and Studies Study information below may be from another EMR and interpreted by another provider. Please see original notes in EMR for more complete details. EKG Summary: 09/07/22 Conclusion Sinus rhythm...normal P axis, V-rate 60- 99 Probable left atrial enlargement...P >50mS, <-0.10mV V1 Low voltage, precordial leads...precordial leads <1.0mV Anesthesia Assessment and Plan Anesthesia History Personal History: No History of Anesthesia Complications Family History: No Family History of Anesthesia Complications Exercise Tolerance Exercise Tolerance: Metabolic Equivalents>4 Pertinent Negatives Pertinent Negatives: No Symptoms of GERD, No Major Cardiovascular Symptoms or Complaints and No Major Pulmonary Symptoms or Complaints Cardiac & Pulmonary Exam Cardiac Exam: Normal S1/S2 Heart Sounds Pulmonary Exam: Clear Bilateral Breath Sounds Implantable Cardiac Device Does patient have a Pacemaker or an ICD?: No Airway Exam Known Difficult Airway: No Mallampati Class: 2 Mouth Opening: Normal (> 3cm) Thyromental Distance: Greater than 3 cm Neck Range of Motion: Full ROM Neck Circumference: Normal Teeth Condition: Normal Dentition ASA Classification ASA Score: ASA 2 Emergency Case?: No NPO Status NPO Status: NPO Clears >2 hours, Solids >8 hours Anesthesia Plan Resuscitation Status: Full Code Anesthesia Technique: MAC Anesthesia Airway Planned: Natural Airway Monitors Used: Standard Monitors Preoperative Comments:: Did not tolerate the drapes (claustrophobic) with last cataract surgery in 2020, requiring intraop IV start and IV Versed. Plan to start with MKO today and Capped IV in place.
[2024-11-24 08:23] VITALS: BMI 26.6
[2024-11-24] MEDS: Tetracaine 0.5% 4 ML BTL (08:42)
[2024-11-24] MEDS: Povidone-Iodine Ophth 30 ML BTL (08:43)
[2024-11-24] MEDS: Lactated Ringers 1,000 ML 30 ML IV (08:49)
[2024-11-24] MEDS: Lidocaine 1% Pres-Free 5 ML VIAL (08:51)
[2024-11-24] MEDS: Phenylephrine/Lidocaine (15/10) MG/ML 1 ML VIAL (08:52)
[2024-11-24] MEDS: Duovisc Viscoelastic System EACH 1 EACH (08:56)
[2024-11-24] MEDS: Balanced Salt Soln.-PLUS 500 ML BAG OP (08:57)
[2024-11-24] MEDS: Prednisolone 1%, Moxifloxacin 0.5%, Bromfenac 0.09% 5.6ML BTL 5.6 ML (08:58)
[2024-11-24] MEDS: Moxifloxacin-PF 1 MG/ML VIAL (08:59)
[2024-11-24 09:16] VITALS: BP 129/83; PULSE 83; RESP 16; TEMP 36.7; O2SAT 94
--- NOTE | 2024-11-24 09:17 | ROE_ITS ---
Operative Note Operative Note PRE-OP DIAGNOSIS: Nuclear/post risk For cataract, left eye POST-OP DIAGNOSIS: same PROCEDURE: Cataract extraction using phacoemulsification with intraocular lens implant, left eye SURGEON: Joel Dave ANESTHESIA TYPE: Local By Surgeon and MAC Refer to Anesthesia Record PATHOLOGY: none sent COMPLICATIONS: None Patient was transported to: same day Patient's condition: stable Implants: Corky and Corky Tecnis Eyhance [id number] Indications: Progressive decreased vision due to cataract, left eye Procedure Description: CATARACT SURGERY OPERATIVE REPORT PREOPERATIVE DIAGNOSIS: 1. Nuclear/posterior subcapsular cataract, left eye POSTOPERATIVE DIAGNOSIS: Same OPERATION: 1. Cataract extraction using phacoemulsification with posterior chamber intraocular lens implant, left eye. IOL: IOL Call Center Dispatcher/Model: Corky & Corky Tecnis Eyhance DIB00 IOL Power: + 22.5 diopters IOL Serial Number: [id number] Optic Diameter: 6.0 mm Haptic/Overall Diameter: 13.0 mm PHACO INFO: Berny [employer] Technologiesurion Vision System with OZil and Active Fluidics Cumulative Dispersed Energy (CDE): 9.0 seconds SURGEON: Joel Dave MD, DONALD ANESTHESIA: Monitored A [facility] (MAC), with local sub-tenon's anesthetic infiltration COMPLICATIONS: None SPECIMENS: None INDICATIONS FOR PROCEDURE: The patient is a 64-year-old lady with history of diminished visual acuity in her left eye secondary to the development of nuclear/posterior subcapsular cataract. She has previously undergone cataract surgery in the right eye in 2020 and is doing well postoperatively. She now presents for cataract surgery in the left eye. See office notes for detailed information. PROCEDURE: The correct surgical eye was identified and marked as the left eye and the pupil was dilated in the preoperative area using mydriatics and cycloplegics. The dilated pupil size was 6.0 mm. Oral sedation was administered in the form of an Imprimis MKO Melt (midazolam 3mg/ketamine 25mg/ondansetron 2mg). . The patient was brought to the operating room where cardiopulmonary monitoring was instituted and surgical time-out was performed, confirming the correct operative eye and IOL power. Topical anesthesia was administered and ophthalmic povidone-iodine 5% was instilled into the conjunctival fornices. The kiersten-ocular area was prepped with Betadine 10% solution and draped in the usual sterile fashion for intraocular surgery, including an aperture drape. A Tegaderm transparent film dressing was cut in half and used to cover the lashes and lid margins. Care was taken to sequester the lashes and lid margins under the Tegaderm dressing. A lid speculum was placed between the lids of the operative eye and the Berny LuxOR Revalia operating microscope was maneuvered into position. The patient was given an extra IV Versed 2 mg for additional sedation. Carly scissors were then used to make a conjunctival buttonhole approximately 6mm posterior to the limbus in the inferonasal quadrant. Blunt dissection was carried out to expose bare sclera, and a blunt-tipped sub-tenon?s anesthesia cannula was introduced and passed posteriorly along the globe where non- preserved plain lidocaine was injected into posterior sub-Tenon?s space. A sideport knife was used to make a paracentesis port. Intraocular phenylephrine/lidocaine was injected into the anterior chamber.. The anterior chamber was filled with viscoelastic. A keratome knife was used to construct a 2-plane near-clear corneal tunnel extending 2.0mm into clear cornea. A flap was raised on the anterior capsule and capsulorhexis forceps were used to complete a continuous curvilinear capsulorhexis of 5.0 mm. Balanced salt solution was then used to perform cortical cleaving hydrodissection and nuclear hydrodelineation until the lens could be freely rotated within the capsular bag. The lens nucleus was then disassembled and removed within the capsular bag and iris plane using phacoemulsification. Residual cortical material was removed using the irrigation/aspiration handpiece. The posterior capsule was carefully polished to remove as much residual lens epithelial cells as safely possible. The capsular bag was then inflated and the anterior chamber deepened with viscoelastic. The lens implant described above was inserted into the capsular bag using the Corky and Corky Simplicity pre-loaded injector. A Kuglen hook was used to dial the IOL into position. Residual viscoelastic was then removed first from posterior to the IOL, then from the anterior chamber using the I/A handpiece. The lens implant was noted to center nicely within the capsular bag. The incisions were stromally hydrated, and the anterior chamber was reformed using BSS. Then 0.5cc of moxifloxacin 1.0mg/ml were injected into the capsular bag and anterior chamber. The incisions were checked with a Weck spear and found to be secure. Several drops of ophthalmic povidone-iodine 5% were then applied to the eye followed by two drops of Imprimis combination prednisolone/moxifloxacin/nepafenac solution. The drapes were removed and a clear plastic protective eye shield was placed over the eye. The patient was then returned to Same Day Surgery in stable condition. Date of Procedure: 11/24/24
--- NOTE | 2024-11-24 09:17 | W.PM.DSUDISC ---
Date of service: 11/24/24 Discharge Plan Disposition Patient Disposition: Home Discharge Details Attending Provider: Joel Dave Primary Care Provider: KEEGAN RITCHIE Home Meds and New Rx's Prescriptions: No Action atorvastatin 20 MG tablet 20 mg PO DAILY amitriptyline 100 MG tablet 100 mg PO HS VITAMIN D3 2,000 UNIT tablet 2,000 unit PO HS polyethylene glycol 3350 [Miralax] 17 GM powder in packet 17 g PO DAILY Qty: 255 diltiazem HCl 240 MG capsule,extended release 24 hr 240 mg PO QAM cyanocobalamin (vitamin B-12) 2,500 MCG tablet 2,500 mcg PO HS magnesium oxide 500 mg Tablet 500 mg PO DAILY hydroxyzine HCl 25 mg tablet 25 mg PO TID PRN (Reason: anxiety) Qty: 10 0RF Discharge Instructions Stand Alone Forms: DSU Post-Op Cataract, Eitan Jacobson (DSU) Discharge Orders Discharge Orders: Discharge Order (Routine); Ordered 11/24/24 Ordered By: Joel Dave DS: Diagnosis Discharge Diagnosis (1) Posterior subcapsular age-related cataract of left eye: Status: Resolved (2) Nuclear age-related cataract, left eye: Status: Resolved
--- NOTE | 2024-11-24 09:37 | W.ANESPOSTOP ---
Postoperative Evaluation Date, Time and Location Date Performed: 11/24/24 Time Performed: 09:16 Patient Location: Day Surgery Unit Vital Signs Most Recent Imported Vital Signs: Most Recent Vital Signs Temp Pulse Resp BP Pulse Ox 36.7 C 83 16 129/83 94 11/24/24 09:16 11/24/24 09:16 11/24/24 09:16 11/24/24 09:16 11/24/24 09:16 Pain Score Most Recent Pain Score: Most Recent Pain Score Pain Level 0 11/24/24 09:16 Assessment Mental Status: Awake (Alert & Oriented to Patient Baseline) Airway and Respiratory Function: Patent airway with normal (patient baseline) respiratory exam Cardiovascular Function: Hemodynamically Stable Hydration Status: Adequately Hydrated Nausea & Vomiting: No Nausea or Vomiting Pain: Pt. Denies Any Pain Peripheral Nerve Block: Patient did not receive a nerve block
[2024-11-24 09:45] VITALS: BP 131/87; PULSE 78; RESP 16; TEMP 36; O2SAT 94
== END 2024-11-24 09:51 | disposition home or self-care (01) ==
PROVIDERS: PCP Nurse Practitioner Family; Visit Provider Ophthalmology
PROC: (CPT 66984; principal; 2024-11-24 08:30)
DX: H25.042 Posterior subcapsular polar age-related cataract, left eye (principal); H25.12 Age-related nuclear cataract, left eye; Z98.41 Cataract extraction status, right eye
CPT/HCPCS: 66984; 00123; V2632; J2003; J2250; J3490

== ENCOUNTER 2025-01-29 01:27 | Outpatient (CLI) | payer MEDICARE, SELFPAY ==
--- NOTE | 2025-01-29 08:35 | DI.RAD_ITS ---
Exam(s) XR SHOULDER LT COMPLETE 2+V EXAM: XR SHOULDER LT COMPLETE 2+V CLINICAL HISTORY: ACUTE PAIN OF LEFT SHOULDER, M25.512,disorder synovium and tendon,m67.912. TECHNIQUE: 2D digital imaging was performed. Three views. COMPARISON: No exams were available for comparison FINDINGS: BONES: No acute fracture is present. No bony destructive lesion is seen. JOINTS: No dislocation present. No significant degenerative changes at the glenohumeral joint or AC joint. SOFT TISSUE: Normal. IMPRESSION: Unremarkable radiographs of the left shoulder. DATA REPOSITORY: RADIATION DOSE DELIVERED:
== END 2025-01-29 01:47 ==
LOC: DI 01:27
PROVIDERS: PCP Nurse Practitioner Family; Visit Provider Nurse Practitioner Family
DX: M25.512 Pain in left shoulder (principal); M67.912 Unspecified disorder of synovium and tendon, left shoulder
CPT/HCPCS: 73030